=== PATIENT | female | born 1975 | race Caucasian/White ===

== ENCOUNTER 2022-03-12 14:05 | Outpatient (CLI) | payer OTHER | END 2022-03-12 14:06 | disposition home or self-care (01) | LOC: BICMAMMO 14:05 | PROVIDERS: ATTEND Family Medicine | DX: Z12.31 Encounter for screening mammogram for malignant neoplasm of breast (principal) | CPT/HCPCS: 77063; 77067 ==

== ENCOUNTER 2022-06-21 10:14 | Outpatient (CLI) | payer BC | END 2022-06-21 10:15 | disposition home or self-care (01) | LOC: ULT 10:14 | PROVIDERS: ATTEND Family Medicine | DX: K29.00 Acute gastritis without bleeding (principal) | CPT/HCPCS: 76705 ==

== ENCOUNTER 2022-07-02 07:37 | Outpatient (CLI) | payer BC | END 2022-07-02 07:38 | disposition home or self-care (01) | LOC: NM 07:37 | PROVIDERS: ATTEND Family Medicine | DX: R10.11 Right upper quadrant pain (principal); K81.9 Cholecystitis, unspecified; K82.8 Other specified diseases of gallbladder | CPT/HCPCS: 78227; A9537 ==